=== PATIENT | female | born 1960 | race Hispanic/Latino ===

== ENCOUNTER 2017-11-10 10:05 | Outpatient (CLI) | payer OTHER ==
--- NOTE | 2017-11-10 17:48 | Cat Scan Report ---
FINAL REPORT EXAM: CT CHEST WO CON HISTORY: ABNORMAL CHEST CT TECHNIQUE: Standard unenhanced CT of the chest at 1.25 mm axial increments. Coronal and sagittal reconstruction was also obtained. PRIORS: None. FINDINGS: There is a small nodular density measuring 7 mm along the superior aspect of the left major fissure (axial image 104, series 2). This may represent a fissural lymph node. There is a small linear density in the lateral left costophrenic angle measuring 7 x 3 mm (axial image 218, series 2). Follow-up is recommended according to Fleischner criteria. Otherwise, the lung parenchyma are expanded and clear with no evidence for parenchymal infiltrates, vascular congestion, pleural effusion, or pneumothorax. There is no evidence for mediastinal, hilar, or axillary adenopathy. The esophagus is collapsed. The trachea is midline. Cardiovascular structures are within normal limits. Cardiac size and aorta are normal. Images through the lung bases include upper abdomen which show no abnormality of the visualized abdominal viscera. Bony structures show no focal abnormalities. No evidence for bony fracture is seen. IMPRESSION: 1. no acute abnormality identified in the chest. 2. Tiny nonspecific 7 mm nodule in the lateral left base and along the superior left major fissure. Follow-up as noted below according to Fleischner criteria. FLEISCHNER SOCIETY GUIDELINES FOR MANAGEMENT OF SMALL PULMONARY NODULES DETECTED ON CT SCANS- Nodule Size Low Risk High Risk (mm) > 6-8 Initial F/U CT Initial F/U CT at 6-12 mo then at 6-12 mo then Consider at 18-24 at 18-24 mo mo, if no change Note- Newly detected indeterminate nodule in persons 35 years or older Low-risk patient = Minimal or absent history of smoking and of other known risk factors High risk patient = History of smoking or other known risk factors
== END 2017-11-10 10:06 | disposition home or self-care (01) ==
LOC: CT 10:05
PROVIDERS: ATTEND Internal Medicine
DX: E04.1 Nontoxic single thyroid nodule (principal); R93.8 Abnormal findings on diagnostic imaging of other specified body structures
CPT/HCPCS: 71250